=== PATIENT | female | born 1945 | race Caucasian/White ===

== ENCOUNTER 2021-02-14 15:36 | Outpatient (CLI) | payer BC | END 2021-02-14 15:37 | disposition home or self-care (01) | LOC: CSHMAMMO 15:36 | PROVIDERS: ATTEND Obstetrics & Gynecology | DX: Z12.31 Encounter for screening mammogram for malignant neoplasm of breast (principal) | CPT/HCPCS: 77063; 77067 ==

== ENCOUNTER 2024-01-12 14:26 | Outpatient (CLI) | payer MEDICARE | END 2024-01-12 14:27 | disposition home or self-care (01) | LOC: CSHCT 14:26 | PROVIDERS: ATTEND Family Medicine | DX: R06.09 Other forms of dyspnea (principal) | CPT/HCPCS: 71250 ==

== ENCOUNTER 2024-05-13 14:09 | Outpatient (CLI) | payer MEDICARE | END 2024-05-13 14:10 | disposition home or self-care (01) | LOC: CSHCP 14:09 | PROVIDERS: ATTEND Internal Medicine | DX: R06.09 Other forms of dyspnea (principal); J44.9 Chronic obstructive pulmonary disease, unspecified; R09.02 Hypoxemia | CPT/HCPCS: 94060; 94618; 94664; 94726; 94729 ==